=== PATIENT | female | born 2005 | race Hispanic/Latino ===

== ENCOUNTER 2025-01-20 22:38 | Emergency (ER) | payer SELFPAY ==
[~2025-01-20] VITALS: Ht 157.5 cm; Wt 55.8 kg
[2025-01-20 22:40] VITALS: TEMP 98.9
--- NOTE | 2025-01-20 23:12 | ERN ---
ED Note History of Present Illness Stated Complaint: FALL Chief Complaint: Knee Injury/Swelling Time Seen by MD: 23:02 Time Seen by Midlevel: 23:05 Dictation: Ms Smith 19-year-old female with no reported chronic health issues who presented to the emergency department this evening for evaluation of knee pain. She states the head she had been experiencing some nausea and was running to the bathroom when she tripped and fell onto her hands and knees. She has an abrasion to her right knee; pain with movement. Has a has few small abrasions to fingertips. She denies additional injury/striking head/+ LOC. She denies fever, chills, shortness of breath, cough, chest pain, palpitations, edema, abdominal pain, vomiting, hematemesis, constipation, diarrhea, melena, hematochezia, dysuria, headache, dizziness, or focal weakness/paresthesia Allergies: Coded Allergies: No Known Allergies (Unverified Allergy, Unknown, 01/20/25) Home Meds Active Scripts Ondansetron (Ondansetron Odt) 4 Mg Tab.rapdis, 4 MG PO Q6HPRN PRN for nausea, #15 TAB 0 Refills Prov:KIKI CROCKETT NP 01/21/25 Ibuprofen (Ibuprofen) 400 Mg Tablet, 1 TAB PO TID for pain or fever, #15 TAB 0 Refills Prov:KIKI CROCKETT NP 01/21/25 Past Medical History Past Medical History: No Pertinent History Surgical History: Tonsillectomy LMP: Jan 16, 2025 RN Note Reviewed/Agreed w/PFSH: Yes Review of System Dictation REVIEW OF SYSTEMS: CONSTITUTIONAL: Patient denies fevers, chills, sweats and weight changes. EYES: Patient denies any visual symptoms. EARS, NOSE, AND THROAT: No difficulties with hearing. No symptoms of rhinitis or sore throat. CARDIOVASCULAR: Patient denies chest pains, palpitations, orthopnea and paroxysmal nocturnal dyspnea. RESPIRATORY: No dyspnea on exertion, no wheezing or cough. GI: No diarrhea, constipation, abdominal pain, hematochezia or melena. Reported episode of nausea; no vomiting : No urinary hesitancy or dribbling. No nocturia or urinary frequency. No abnormal urethral discharge. MUSCULOSKELETAL: Reports pain right knee NEUROLOGIC: No chronic headaches, no seizures. Patient denies numbness, tingling or weakness. PSYCHIATRIC: Patient denies problems with mood disturbance. No problems with anxiety. ENDOCRINE: No excessive urination or excessive thirst. DERMATOLOGIC: Reports abrasion to right knee as well as small abrasions to fingertips. No bleeding. Initial Vital Sign VS Vital Signs Date Time Temp Pulse Resp B/P (MAP) Pulse Ox O2 Delivery O2 Flow Rate FiO2 01/20/25 22:40 99.0 97 20 143/83 100 Room Air Physical Exam Dictation Vital signs: Reviewed. Afebrile Constitutional: No acute distress. Non-toxic appearing. Accompanied by mother. Head/Face: Normocephalic, atraumatic. Eyes: Periorbital areas with no swelling, redness, or edema. Lids and lashes are normal. Conjunctival injection is absent. Sclera anicteric. Pupils equal, round, reactive to light. ENT: Pinnas intact and no signs of trauma or erythema. Ear canals clear and no discharge. TMs no erythema. No nasal discharge or bleeding noted. Oropharynx with no exudate, redness, swelling, masses, exudates, or evidence of obstruction. Uvula midline. Mucous membranes moist. Neck: Trachea midline, no masses palpated, and no cervical lymphadenopathy. No swelling. Supple, full range of motion. Chest/Axilla: No tenderness, no crepitus, no paradoxical movement, no retracti ons. Cardiovascular: Regular rate, regular rhythm, no murmur, no gallops. Symmetric pulses. No peripheral edema. Respiratory: Respirations even and unlabored. Lung sounds clear; no wheezes, rales or rhonchi. Room air SpO2 100% Gastrointestinal: Inspection is normal. No distention is appreciated. Bowel sounds are normal. No mass or organomegaly . There is no tenderness. No rebound. No rigidity. No voluntary or involuntary guarding. No Barber's sign. Neurological: Normal speech, gross motor function intact, gross sensory function intact. No focal weakness/Paresthesia. Musculoskeletal/Extremities: All extremities have full range of motion but there is tenderness upon palpation/range of motion of the right knee. Symmetric pulses. She has good color, warmth, movement, and sensation to right toes. Capillary refills less than 2 seconds. Integumentary: Skin is normal color, warm and dry. Cap refill less than [address] rash type abrasion to right knee; clean with no bleeding or foreign body noted. Tender upon palpation Results (Laboratory/Radiology) X-RAY Comment: X-ray right knee unremarkable; no fracture or dislocation noted. Radiology interpretation is pending. ED Course ED Course Orders Procedure Category Date Status Time Knee 3vws Rt RAD 01/20/25 Taken 22:58 Hydrocodone/Apap PHA 01/20/25 Complete 5/325 ([place] 5/325mg) 23:30 Wound Care (Er) CPOE 01/20/25 Transmitted 23:04 Ondansetron Odt 4mg PHA 01/21/25 In Process Tab (Zofran 4mg Odt) 00:30 Tetanus,Diphtheria PHA 01/21/25 In Process Tox [Adult] (Diphther 00:30 Ondansetron Odt 4mg PHA 01/21/25 Complete Tab (Zofran 4mg Odt) 00:19 Current Medications Medications (Trade) Dose Ordered Sig/Khang Route PRN Reason Start Time Stop Time Status Last Admin Dose Admin Acetaminophen/ Hydrocodone Bitart (NORco 5/325MG) 1 tab ONCE ONCE PO 01/20/25 23:30 01/20/25 23:31 DC Ondansetron HCl (zoFRAN 4MG ODT) 4 mg ONCE ONCE SL 01/21/25 00:30 01/21/25 00:31 Ondansetron HCl (zoFRAN 4MG ODT) 4 mg STK-MED ONCE .ROUTE 01/21/25 00:19 01/21/25 00:20 DC Tetanus/ Diphtheria Toxoids Adsorbed (DiphthERIA-teTANUS TOXOID [ADULT]/ DECAVAC) 0.5 ml ONCE ONCE IM 01/21/25 00:30 01/21/25 00:31 Vital Signs Date Time Temp Pulse Resp B/P (MAP) Pulse Ox O2 Delivery O2 Flow Rate FiO2 01/20/25 22:40 99.0 97 20 143/83 100 Room Air Uneventful ED course. Vital signs are stable. She reported some nausea prior to her fall but states that she has not vomited. She denies abdominal pain. X- ray of the right knee negative for fracture or dislocation. Abrasion to the right knee and fingers were cleansed with Shur-Clens and dressing applied. She received dose Tylenol as well as Zofran ODT x1. Td was updated. She is ambulatory and will be discharged to home. Medical Decision Making MDM MDM: Differential diagnosis: Right knee sprain, fracture/dislocation right knee, abrasion Rationale: Tests considered and ordered secondary to shared decision making include: X-ray Previous outside records reviewed: Old ER visits. Risk of complication and/or morbidity or mortality of patient management: None Medications-Per medication reconciliation Need for hospitalization: Patient does not meet criteria for hospitalization. Need for emergency major/minor surgery: No There are no social concerns with this patient. Prescription drug management: Ibuprofen, Zofran Prescriptions will include symptomatic care Patient's prior external medical records from other ER visits were reviewed by me as indicated. Prior testing and results from previous visits were reviewed. Prior tests were taken into account with medical decision making and resource utilization, independent historian/historians were used to obtain complete medical history. I independently interpreted the test that were performed, results were reviewed by me and considered findings on radiology if ordered. Medical management and examination interpretation discussions were had by me with other qualified healthcare professionals as indicated for the patient's care. DX & DISP Disposition: Discharge Departure Impression: Primary Impression: Contusion of right knee Additional Impressions: Abrasion of knee, right, Multiple abrasions of fin paresh, Nausea Condition: Stable Scripts Ondansetron (Ondansetron Odt) 4 Mg Tab.rapdis 4 MG PO Q6HPRN PRN for nausea, #15 TAB 0 Refills Prov: KIKI CROCKETT NP 01/21/25 Ibuprofen (Ibuprofen) 400 Mg Tablet 1 TAB PO TID for pain or fever, #15 TAB 0 Refills Prov: KIKI CROCKETT NP 01/21/25 Additional Instructions: Rest. Gentle ufyth-zn-drifie to right knee. Wash abrasions daily with mild soap/water; pat dry, may apply OTC antibiotic cream. May take ibuprofen 400 mg Q 8 hours as needed for discomfort or OTC ibuprofen. May take Zofran ODT as nee ded for nausea. Follow up with your primary care physician next week if symptoms persist or signs of infection: Increased redness, drainage, fever, swelling, or increased pain. Referrals: NONE (PCP) Time of Disposition: 00:17 KIKI CROCKETT NP Jan 20, 2025 23:12
--- NOTE | 2025-01-20 23:19 | NUR ---
PT SITTING IN LOBBY WITH MOTHER, IN FRONT OF TRIAGE. GOOD EVEN CHEST RISE AND FALL OBSERVED. INTERACTING WITH MOTHER .
[2025-01-21] MEDS ORDERED: ONDA-243 PO (00:16)
[2025-01-21] MEDS ORDERED: IBUP-2076 PO (00:16)
[2025-01-21 00:24] VITALS: BP 138/80; PULSE 90; RESP 18; O2SAT 99
[2025-01-21] MEDS: HYDROcodone/APAP 5/325 1 TAB TABLET PO ONE (00:28)
--- NOTE | 2025-01-21 00:38 | NUR ---
WOUND CARE PROVIDED TO RT KNEE ORDERED. ABRASION CLEANSED WITH SKIN TEGRITY, NON-ADHASIVE GUAZE APPLIED TO ABRASION AND YINA BANDAGE WRAPPED ON WOUND. D/C INSTRUCTIONS GIVEN TO PATIENT FOR AT HOME WOUND CARE. PT VERBALIZED UNDERSTANDING.
--- NOTE | 2025-01-21 00:58 | HMCIMG ---
EXAM: CR Right Knee, 3 views. CLINICAL HISTORY: Fall. Abrasion. COMPARISON: None provided. FINDINGS: No acute fracture or aggressive appearing osseous lesion. Joint spaces are within normal limits. There is no joint effusion appreciated. The soft tissues are unremarkable. IMPRESSION: No acute bony abnormality is evident. /[place]
== END 2025-01-21 00:46 | disposition home or self-care (01) ==
LOC: EDH 22:38
DX: S80.01XA Contusion of right knee, initial encounter (principal); S60.419A Abrasion of unspecified finger, initial encounter; S80.211A Abrasion, right knee, initial encounter; Z79.1 Long term (current) use of non-steroidal anti-inflammatories (NSAID); Z90.89 Acquired absence of other organs; W01.0XXA Fall on same level from slipping, tripping and stumbling without subsequent striking against object, initial encounter; Y93.02 Activity, running; Y92.89 Other specified places as the place of occurrence of the external cause; Y99.8 Other external cause status
CPT/HCPCS: 73562; 90714; 99283

== ENCOUNTER 2025-05-09 13:50 | Emergency (ER) | payer SELFPAY ==
[~2025-05-09] VITALS: Ht 157.5 cm; Wt 56.7 kg
[~2025-05-09 13:50] MED LIST: IBUP-2076 PO; ONDA-243 PO
--- NOTE | 2025-05-09 15:15 | ERN ---
ED Note History of Present Illness Stated Complaint: LOW BACK PAIN Chief Complaint: Low Back Pain/Injury Time Seen by MD: 13:54 Dictation: PATIENT IS A 19-YEAR-OLD FEMALE HERE WITH SACRAL COCCYX PAIN AFTER A SLIP FALL ON HER BOTTOM LAST NIGHT. SHE DENIES ANY CHANGE IN BOWEL OR BLADDER FUNCTION SHE IS AMBULATORY WITH PAIN. SHE DENIES SCIATICA OR RADICULOPATHY. SHE HAS TAKEN NOTHING PRIOR TO ARRIVAL FOR PAIN. Allergies: Coded Allergies: No Known Allergies (Unverified Allergy, Unknown, 01/20/25) Home Meds Active Scripts Ondansetron (Ondansetron Odt) 4 Mg Tab.rapdis, 4 MG PO Q6HPRN PRN for nausea, #15 TAB 0 Refills Prov:KIKI CROCKETT [facility] 01/21/25 Ibuprofen (Ibuprofen) 400 Mg Tablet, 1 TAB PO TID for pain or fever, #15 TAB 0 Refills Prov:KIKI CROCKETT [facility] 01/21/25 Past Medical History Past Medical History: No Pertinent History Surgical History: Tonsillectomy History: Not Applicable RN Note Reviewed/Agreed w/PFSH: Yes Review of System Dictation CONSTITUTIONAL: NEGATIVE EXCEPT FOR HPI HEAD/FACE: NEGATIVE EXCEPT FOR HPI EENT: NEGATIVE EXCEPT FOR HPI RESPIRATORY: NEGATIVE EXCEPT FOR HPI GASTROINTESTINAL/ABDOMINAL: NEGATIVE EXCEPT FOR HPI GENITOURINARY: NEGATIVE EXCEPT FOR HPI MUSCULOSKELETAL: NEGATIVE EXCEPT FOR HPI SACRAL/COCCYX PAIN INTEGUMENTARY: NEGATIVE EXCEPT FOR HPI NEUROLOGICAL/PSYCH: NEGATIVE EXCEPT FOR HPI HEMATOLOGIC/LYMPHATIC: NEGATIVE EXCEPT FOR HPI ALL SYSTEMS NEGATIVE, EXCEPT NOTED ABOVE. 13 POINT REVIEW OF SYSTEMS ASSESSED AND ALL NEGATIVE EXCEPT FOR ABOVE. Initial Vital Sign VS Vital Signs Date Time Temp Pulse Resp B/P (MAP) Pulse Ox O2 Delivery O2 Flow Rate FiO2 05/09/25 13:52 97.7 82 16 110/84 99 Room Air 05/09/25 15:47 0 21 Physical Exam Dictation VITAL SIGNS REVIEWED GENERAL APPEARANCE: ALERT, ORIENTED X 3, MODERATE ACUTE DISTRESS, WELL DEVELOPED, NOURISHED. HEAD AND FACE: NON-TRAUMATIC. EYES: PERRL, PINK CONJUNCTIVAS, EYELID NO TRAUMA, ANTERIOR CHAMBER WITH ARCUS SENILIS. EARS: PINNAS INTACT AND NO SIGNS OF TRAUMA OR ERYTHEMA EAR CANALS CLEAR AND NO DISCHARGE TM NO ERYTHEMA NOSE: NO DISCHARGE, NO BLEEDING. OROPHARYNX: MOUTH NORMAL, TONGUE PINK, PHARYNX CLEAR,NO ERYTHEMA, TONSILS NO EXUDATES, NO ABSCESSES NOTED, MUCOUS MEMBRANE MOIST NECK: SUPPLE, NON-TENDER, NO THYROMEGALY, NO MASSES, NO JVD, NO BRUITS BREAST:DEFERRED CHEST:NO TENDERNESS, NO CREPITUS, NO PARADOXICAL MOVEMENT, NO RETRACTIONS LUNGS:CLEAR, WELL-VENTILATED, SYMMETRIC, NO RALES, NO WHEEZING, NO RHONCHI, NO STRIDOR, GOOD BREATH SOUNDS BILATERALLY HEART: REGULAR RATE, REGULAR RHYTHM, NO MURMUR, NO GALLOPS VASCULAR: NO PERIPHERAL EDEMA, ABDOMEN: SOFT, POSITIVE BOWEL SOUNDS, NONDISTENDED, NO GUARDING, NONTENDER, NO REBOUND, NO MASSES NO HEPATOMEGALY, NO SPLENOMEGALY, NO VILLALBA'S SIGN, NO HERNIAS. RECTAL: DEFERRED GENITAL: DEFERRED NEUROLOGICAL: NORMAL SPEECH, MOTOR FUNCTION INTACT, SENSORY FUNCTION INTACT MUSCULOSKELETAL: NECK NONTENDER, FULL RANGE OF MOTION, SACRAL COCCYX PAIN. FULL RANGE OF MOTION, EXTREMITIES: NONTENDER, FULL RANGE OF MOTION SKIN: COLOR PINK, DRY, NO TURGOR, NO RASH, NO LACERATIONS, NO ABRASIONS, NO CONTUSIONS. LYMPHATIC: DEFERRED Results (Laboratory/Radiology) Labs Reviewed?: Yes ED Course ED Course Orders Procedure Category Date Status Time Acetaminophen 500mg PHA 05/09/25 Complete Tab (Tylenol 500mg T 15:30 Current Medications Medications (Trade) Dose Ordered Sig/Khang Route PRN Reason Start Time Stop Time Status Last Admin Dose Admin Acetaminophen (TYLenol 500MG TAB) 1,000 mg ONCE ONCE PO 05/09/25 15:30 05/09/25 15:31 DC 05/09/25 16:01 Vital Signs Date Time Temp Pulse Resp B/P (MAP) Pulse Ox O2 Delivery O2 Flow Rate FiO2 05/09/25 15:47 97.7 82 16 110/84 99 Room Air* 0 21 05/09/25 13:52 97.7 82 16 110/84 99 Room Air Medical Decision Making MDM PATIENT ELOPED FROM THE WAITING ROOM. DX & DISP Disposition: AMA Departure Impression: Primary Impression: Low back pain Additional Impression: Fall Condition: Stable Referrals: NONE (PCP) I have reviewed the case, and I agree with, Diagnosis and Plan [facility] [employer] May 09, 2025 15:15
[2025-05-09 15:47] VITALS: BP 110/84; PULSE 82; RESP 16; TEMP 97.7; O2SAT 99
== END 2025-05-09 17:59 | disposition left against medical advice (07) ==
LOC: EDH 13:50
DX: M53.3 Sacrococcygeal disorders, not elsewhere classified (principal); M54.50 Low back pain, unspecified; Z79.1 Long term (current) use of non-steroidal anti-inflammatories (NSAID); Z90.89 Acquired absence of other organs; W01.0XXA Fall on same level from slipping, tripping and stumbling without subsequent striking against object, initial encounter; Y93.89 Activity, other specified; Y92.89 Other specified places as the place of occurrence of the external cause; Y99.8 Other external cause status
CPT/HCPCS: 99282